=== PATIENT | male | born 1960 | race Caucasian/White ===

== ENCOUNTER 2018-12-20 21:54 | Emergency (ER) | payer SELFPAY ==
[2018-12-20] MEDS ORDERED: DIPH,PERTUSS(ACELL),TET VAC/PF 0.5 ML DISP.SYRIN IM ONE (22:08)
[2018-12-20 22:10] VITALS: BP 137/99
--- NOTE | 2018-12-20 22:45 | Diagnostic Imaging Report ---
ROCCO GALLO [facility] [id number] [id number] Report Submission Date: December 20, 2018 10:40:07 PM CDT Patient Study Name: RAFAELA HAYES Date: December 20, 2018 10:10:17 PM CDT Modality Type: DX Gender: M Description: FOOT 3 VIEWS OR MORE : 56 Institution: [facility] Physician: ROCCO GALLO Three views left foot Clinical history: Splinter in the plantar 3rd metatarsal area. Findings: Examination of the left foot in plantar, lateral and oblique views demonstrates degenerative changes with narrowing of the 1st metatarsophalangeal joint and osteophyte formation. There is no evident fracture or dislocation and no lytic or blastic lesion. Calcaneal spur is present at the site of insertion of plantar aponeurosis. Impression: 1. Degenerative changes. 2. No opaque foreign body in the soft tissues although splinters are generally not radio-opaque. Electronically signed on December 20, 2018 10:40:07 PM CDT by: Jose RIOS
--- NOTE | 2018-12-20 23:28 | ED Physician Documentation ---
Lower Extremity Injury - HPI Stated Complaint: Left foot pain Chief Complaint: Lower Extremity Injury Additional Information: Patient presents to ED after getting a splinter in his left foot. He states he pulled it out but thinks there is still some left in his foot. Onset: hours (2) Where: home Severity: mild Context: barefoot Associated Symptoms:: denies: tingling - ROS CONST: no problems CVS/RESP: none GI/: denies: nausea, vomiting MS/SKIN/LYMPH: none NEURO: denies: headache - PAST HX Past History: none Allergies/Adverse Reactions: Allergies Allergy/AdvReac Type Severity Reaction Status Date / Time No Known Allergies Allergy Verified 12/20/18 22:09 - SOCIAL HX Smoking History: non-smoker Alcohol Use: none Drug Use: none - FAMILY HX Family History: none - VITAL SIGNS Vital Signs: Vital Signs Temp Pulse Resp BP Pulse Ox 98.0 F 93 H 18 137/99 97 12/20/18 21:54 12/20/18 21:54 12/20/18 21:54 12/20/18 21:54 12/20/18 21:54 - REVIEWED ASSESSMENTS Nursing Assessment Reviewed: Yes Vitals Reviewed: Yes ED Results Lab/Radiology - Orders Orders: ED Orders Category Date Time Status FOOT 3 VIEWS OR MORE [RAD] Stat Exams 12/20/18 Completed Diph,Pertuss(Acell),Tet Vac/Pf [Adacel] Med 12/20/18 22:08 Discontinued 0.5 ml IM .ONCE ONE Lower Extremities Injury Phy - Physical Exam General Appearance: no acute distress, alert Hips: bilateral hip: non-tender, normal inspection, normal range of motion, no evidence of injury Legs: bilateral: non-tender, normal inspection, normal range of motion, no evidence of injury Knees: bilateral: non-tender, normal inspection, normal range of motion, no evidence of injury Ankle: bilateral: non-tender, normal inspection, normal range of motion, no evidence of injury Foot: left foot: soft tissue tenderness (small puncture wound at the head of left 1st metatarsal. ) Gait: normal Neuro/Vascular/Tendon: no vascular compromise, motor nml, sensation nml Head/ENT: nml inspection Neck/Back: nml inspection, non-tender Resp/CVS: chest non-tender, breath sounds nml, heart sounds nml, lungs clear Abdomen: non-tender, pelvis stable Discharge Clincal Impression: Puncture wound of foot Qualifiers: Encounter type: initial encounter Laterality: left Qualified Code(s): S91.332A - Puncture wound without foreign body, left foot, initial encounter Referrals: Primary Doctor,No [Primary Care Provider] - 2 Days Additional Instructions: 1. tylenol and/or ibuprofen as neeed for pain 2. Keep foot elevated at rest 3. Apply ice to affected area as needed for comfort 4. Follow up with PCP within 1 week. 5. Return to ER for new or worsening symptoms Condition: Stable Disposition: 01 HOME, SELF-CARE Decision to Admit: NO Date of Decison to Admit: 12/20/18 Decision Time: 23:28
== END 2018-12-20 23:31 | disposition home or self-care (01) ==
LOC: ED 21:54
DX: S91.332A Puncture wound without foreign body, left foot, initial encounter (principal); W45.8XXA Other foreign body or object entering through skin, initial encounter; Y93.9 Activity, unspecified; Y92.009 Unspecified place in unspecified non-institutional (private) residence as the place of occurrence of the external cause
CPT/HCPCS: 73630; 90471; 90715; 99282; 99283

== ENCOUNTER 2018-12-21 14:05 | Emergency (ER) | payer SELFPAY ==
--- NOTE | 2018-12-21 14:16 | ED Physician Documentation ---
General Adult - HISTORIAN Historian: patient - HPI Stated Complaint: left foot pain - post foreign object in foot Chief Complaint: Foot Injury Onset: days ago (2) Timing: still present Severity: mild Further Comments: yes (He states he was treated here in ER last night for a foreign object in his foot. he did feel he removed the item but then wanted to make sure. Area was not found with any current object in his foot. He states this am after ice and elevation he had such terrible pain he had to crawl around. He states he has noted some swelling. He has not tried any OTC meds this afternoon. He denies any new injury. He has mild redness.) Last known Well Code/Unknown Code: Unknown - ROS CONST: no problems - PAST HX Past History: none Immunizations: UTD Allergies/Adverse Reactions: Allergies Allergy/AdvReac Type Severity Reaction Status Date / Time No Known Allergies Allergy Verified 12/21/18 14:21 - SOCIAL HX Smoking History: cigarettes Alcohol Use: none Drug Use: none - FAMILY HX Family History: No - VITAL SIGNS Vital Signs: Vital Signs Temp Pulse Resp BP Pulse Ox 137/99 12/20/18 23:31 - REVIEWED ASSESSMENTS Nursing Assessment Reviewed: Yes Vitals Reviewed: Yes Progress - Progress Progress: 1520: results and plan discussed - he is agreeable DG ED Results Lab/Radiology - Radiology Radiology Impressions: The left foot 3 views Clinical history pain Technique AP lateral oblique. 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 No fracture or lytic changes identified. There is inferior calcaneal spur. Electronically signed on December 21, 2018 3:18:53 PM CDT by: Maximilian Shabazz General Adult Physical Exam - PHYSICAL EXAM GENERAL APPEARANCE: no distress EENT: eye inspection normal, no signs of dehydration NECK: normal inspection RESPIRATORY: no resp distress, chest non-tender, breath sounds normal CVS: reg rate & rhythm, heart sounds normal, equal pulses, no murmur ABDOMEN: soft, normal bowel sounds, no distension BACK: normal inspection, no CVA tenderness SKIN: warm/dry, normal color EXTREMITIES: non-tender, normal range of motion, other (pain with palpaiton to the top and posterior side of foot. No obvious abnormality. No redness or swelling noted in relation to right foot . Pulses + cap refill + sensaton + ) NEURO: oriented X3 Discharge Clincal Impression: Left foot pain Referrals: Primary Doctor,No [Primary Care Provider] - 2 Days Comments: 1. Continue as per direction with discharge last night 2. Keep foot elevated 3. Ice to area 4. OTC meds as directed for pain - Prednisone 20 mg daily x 5 days and Meloxicam 7.5 mg every 12 hours as needed for pain 5. See PCP in 2 days 6. Return to the ER for any increased concerns Condition: Stable Disposition: 01 HOME, SELF-CARE Decision to Admit: NO Date of Decison to Admit: 12/21/18 Decision Time: 15:27
[2018-12-21 14:21] VITALS: BP 117/87
[2018-12-21] MEDS ORDERED: KETOROLAC TROMETHAMINE 60 MG/2 ML VIAL IM ONE (15:22)
--- NOTE | 2018-12-21 15:32 | Diagnostic Imaging Report ---
JUAN R CASTRO [facility] [address] [facility] [address] [place], [place]. [address] Report Submission Date: December 21, 2018 3:18:53 PM CDT Patient Study Name: RAFAELA HAYES Date: December 21, 2018 2:58:39 PM CDT Modality Type: DX Gender: M Description: FOOT 3 VIEWS OR MORE : 56 Institution: [facility] Physician: JUAN R CASTRO The left foot 3 views Clinical history pain Technique AP lateral oblique. 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 No fracture or lytic changes identified. There is inferior calcaneal spur. Electronically signed on December 21, 2018 3:18:53 PM CDT by: Maximilian RIOS
== END 2018-12-21 15:39 | disposition home or self-care (01) ==
LOC: ED 14:05
DX: M79.672 Pain in left foot (principal)
CPT/HCPCS: 73630; 96372; 99283; J1885